=== PATIENT | female | born 1995 | race Two or more races ===

== ENCOUNTER 2021-08-14 15:12 | Emergency (ER) | payer OTHER ==
[~2021-08-14] VITALS: Ht 162.6 cm; Wt 72.6 kg
--- NOTE | 2021-08-14 15:45 | NUR ---
CALLED TO TRIAGE,NO ANSWER
[2021-08-14 16:12] VITALS: BP 124/68
[2021-08-14] MEDS ORDERED: IV NS 0.9% 1,000 ML BAG IV ONE (17:00)
[2021-08-14] MEDS ORDERED: ACETAMINOPHEN ES 500 MG TABLET PO ONE (17:00)
[2021-08-14] MEDS ORDERED: ACETAMINOPHEN ES 500 MG TABLET ONE (17:09)
[2021-08-14] MEDS ORDERED: GUAI1TBM19 PO (18:18)
[2021-08-14] MEDS ORDERED: IBUP-1955 PO (18:19)
--- NOTE | 2021-08-14 18:30 | NUR ---
IV removed. Catheter intact and site benign. Pressure and 4x4 applied to site. No bleeding noted.Patient discharged to home in stable condition. Written and verbal after care instructions given. Patient verbalizes understanding of instruction.
== END 2021-08-14 18:30 | disposition home or self-care (01) ==
LOC: ER 15:21
DX: J06.9 Acute upper respiratory infection, unspecified (principal); Z20.822 Contact with and (suspected) exposure to COVID-19
CPT/HCPCS: 71045; 87426; 87804; 96360; 99284; C9803 ×2; J7030; U0003